=== PATIENT | female | born 1960 ===

== ENCOUNTER 2018-12-14 07:45 | Inpatient (IN) | payer OTHER ==
[~2018-12-14] VITALS: Ht 160 cm; Wt 69.4 kg
[2018-12-14] MEDS ORDERED: COZAAR50 MG PO (09:43)
[2018-12-25] MEDS ORDERED: NAPROXEN500 MG PO (12:44)
== END 2018-12-25 13:15 | disposition home or self-care (01) | DRG 743 ==
LOC: O/R 07:45 → SURH 12-22 07:00 → OB/GYN 12-22 11:54
PROVIDERS: ADMIT Obstetrics & Gynecology
PROC: 0UT20ZZ Resection of Bilateral Ovaries, Open Approach (ICD-10-PCS; 2018-12-22)
PROC: 0TJB8ZZ Inspection of Bladder, Via Natural or Artificial Opening Endoscopic (ICD-10-PCS; 2018-12-22)
PROC: 0UT90ZZ Resection of Uterus, Open Approach (ICD-10-PCS; principal; 2018-12-22 07:00)
PROC: 0UT70ZZ Resection of Bilateral Fallopian Tubes, Open Approach (ICD-10-PCS; 2018-12-22 07:00)
DX: D25.1 Intramural leiomyoma of uterus (principal); N85.8 Other specified noninflammatory disorders of uterus; N73.6 Female pelvic peritoneal adhesions (postinfective); N83.01 Follicular cyst of right ovary; I10 Essential (primary) hypertension